=== PATIENT | female | born 1965 | race Caucasian/White ===

== ENCOUNTER 2017-10-08 17:07 | Emergency (ER) | payer OTHER ==
[~2017-10-08] VITALS: Ht 154.9 cm; Wt 68.0 kg
[~2017-10-08 17:07] MED LIST: CRESTOR10 M1 PO; CYCLOBENZAPRINE5 MG PO; GLU5 PO; INVOKAMET1 TA1 PO; LEVEMIR100 U/M1 SQ; MAGNESIUM OXID400 MG PO; METFORMIN HCL1000 MG PO; METFORMIN850 M1 GT; MOTRIN800 MG PO; NOVOLOG FLEX100 U/M1 SC; OMEPRAZOLE DR20 M1 PO
[2017-10-08 18:28] VITALS: BP 122/78
== END 2017-10-08 18:28 | disposition home or self-care (01) ==
LOC: ED 17:07
DX: G43.909 Migraine, unspecified, not intractable, without status migrainosus (principal); I10 Essential (primary) hypertension; E11.9 Type 2 diabetes mellitus without complications; E78.00 Pure hypercholesterolemia, unspecified

== ENCOUNTER 2018-12-13 15:42 | Emergency (ER) | payer OTHER ==
[~2018-12-13] VITALS: Ht 162.6 cm; Wt 75.5 kg
[2018-12-13 15:48] VITALS: Ht 162.6 cm; Wt 75.5 kg
[2018-12-13 16:01] VITALS: BP 107/78
== END 2018-12-13 17:15 | disposition home or self-care (01) ==
LOC: ED 15:42
DX: S20.212A Contusion of left front wall of thorax, initial encounter (principal); F17.210 Nicotine dependence, cigarettes, uncomplicated; I10 Essential (primary) hypertension; E11.9 Type 2 diabetes mellitus without complications; E78.00 Pure hypercholesterolemia, unspecified; Z98.890 Other specified postprocedural states; W22.8XXA Striking against or struck by other objects, initial encounter; Y93.89 Activity, other specified; Y92.89 Other specified places as the place of occurrence of the external cause; Y99.8 Other external cause status
CPT/HCPCS: 99406; J1885

== ENCOUNTER 2019-01-04 14:17 | Emergency (ER) | payer OTHER ==
[~2019-01-04] VITALS: Ht 154.9 cm; Wt 74.8 kg
[2019-01-04 14:31] VITALS: Ht 154.9 cm; Wt 74.8 kg
[2019-01-04 16:50] VITALS: BP 111/75
== END 2019-01-04 16:50 | disposition home or self-care (01) ==
LOC: ED 14:17
DX: S39.012A Strain of muscle, fascia and tendon of lower back, initial encounter (principal); M54.17 Radiculopathy, lumbosacral region; N39.0 Urinary tract infection, site not specified; I10 Essential (primary) hypertension; E11.9 Type 2 diabetes mellitus without complications; E78.00 Pure hypercholesterolemia, unspecified; Z98.890 Other specified postprocedural states; X58.XXXA Exposure to other specified factors, initial encounter; Y93.89 Activity, other specified; Y92.89 Other specified places as the place of occurrence of the external cause; Y99.8 Other external cause status
CPT/HCPCS: J1885; Q0162

== ENCOUNTER 2019-11-22 02:45 | Emergency (ER) | payer OTHER ==
[~2019-11-22] VITALS: Ht 157.5 cm; Wt 77.6 kg
[2019-11-22 02:52] VITALS: Ht 157.5 cm; Wt 77.6 kg
[2019-11-22 03:47] LABS: UA SPECIFIC GRAVITY 1.015 (1.005-1.035); microscopic required? YES; urine erythrocyte 3+ (NEGATIVE)
[2019-11-22 04:17] LABS: BASOPHIL % 0.4 % (0-2); PLATELET COUNT 273 x10^3mcL (130-400); RED CELL DISTRIBUTION WIDTH 14.5 % (11.5-14.5)
[2019-11-22 04:18] LABS: CALCIUM 8.9 mg/dL (8.5-10.1); CARBON DIOXIDE 27.9 mmol/L (21-32); CHLORIDE SERUM 100 mmol/L (98-107); CREATININE SERUM 0.6 mg/dL (0.6-1.0); GFR1 > 60 mL/min; GLUCOSE SERUM 300 mg/dL (74-106); SODIUM SERUM 136 mmol/L (136-145)
[2019-11-22 04:22] LABS: ALKALINE PHOSPHATASE 190 U/L (46-116); ALT/SGPT 36 U/L (14-59); AST/SGOT 20 U/L (15-37); BILIRUBIN TOTAL 0.6 mg/dL (0.20-1.00); TOTAL PROTEIN, SERUM 7.5 g/dL (6.4-8.2)
[2019-11-22 04:26] LABS: ALBUMIN 3.3 g/dL (3.4-5.0)
[2019-11-22 05:29] VITALS: BP 119/61
== END 2019-11-22 05:29 | disposition home or self-care (01) ==
LOC: ED 02:45
PROVIDERS: Emergency Medicine
DX: N12 Tubulo-interstitial nephritis, not specified as acute or chronic (principal); E11.9 Type 2 diabetes mellitus without complications; F17.210 Nicotine dependence, cigarettes, uncomplicated; I10 Essential (primary) hypertension; E78.00 Pure hypercholesterolemia, unspecified; Z71.6 Tobacco abuse counseling; Z90.710 Acquired absence of both cervix and uterus; Z98.890 Other specified postprocedural states
CPT/HCPCS: 82962; 99406; J0696; J1885; J2405

== ENCOUNTER 2020-01-29 11:50 | Emergency (ER) | payer OTHER ==
[~2020-01-29] VITALS: Ht 154.9 cm; Wt 79.4 kg
[2020-01-29 11:58] VITALS: Ht 154.9 cm; Wt 79.4 kg
[2020-01-29 13:32] VITALS: BP 138/76
== END 2020-01-29 13:32 | disposition home or self-care (01) ==
LOC: ED 11:50
DX: M65.4 Radial styloid tenosynovitis [de Quervain] (principal); I10 Essential (primary) hypertension; E11.9 Type 2 diabetes mellitus without complications; E78.00 Pure hypercholesterolemia, unspecified; Z98.890 Other specified postprocedural states